=== PATIENT | female | born 1985 | race Caucasian/White ===

== ENCOUNTER 2020-01-09 02:16 | Emergency (ER) | payer MEDICAID ==
--- NOTE | 2020-01-09 02:50 | EDM.PDOC ---
ED HPI GENERAL MEDICAL PROBLEM - General Chief Complaint: FACILITIES MAINTENANCE SUPERVISOR Problem Stated Complaint: BLEEDING Time Seen by Provider: 01/09/20 02:30 Source of Information: Reports: Patient History Limitations: Reports: No Limitations - History of Present Illness INITIAL COMMENTS - FREE TEXT/NARRATIVE: Patient is a @ approximately 31 weeks AOG presented to the ED because of post coital bleeding. Denies any abdominal pain. 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 History: - Infectious Disease History Infectious Disease History: Reports: Chicken Pox - Past Surgical History HEENT Surgical History: Reports: Oral Surgery Social & Family History - Family History Family Medical History: Noncontributory - Tobacco Use Smoking Status *Q: Current Every Day Smoker Years of Tobacco use: 9 Packs/Tins Daily: 0.5 - Caffeine Use Caffeine Use: Reports: Energy Drinks, Soda, Tea - Recreational Drug Use Recreational Drug Use: No ED ROS GENERAL - Review of Systems Review Of Systems: See Below Constitutional: Reports: No Symptoms HEENT: Reports: No Symptoms Respiratory: Reports: No Symptoms Cardiovascular: Reports: No Symptoms Endocrine: Reports: No Symptoms GI/Abdominal: Reports: No Symptoms : Reports: No Symptoms Musculoskeletal: Reports: No Symptoms Skin: Reports: No Symptoms ED EXAM - Physical Exam Exam: See Below Exam Limited By: No Limitations General Appearance: Alert, No Apparent Distress Ears: Normal External Exam, Normal Canal Nose: Normal Inspection, Normal Mucosa Throat/Mouth: Normal Inspection, Normal Lips, Normal Teeth Head: Atraumatic, Normocephalic Neck: Normal Inspection, Supple, Non-Tender Respiratory/Chest: No Respiratory Distress, Lungs Clear, Normal Breath Sounds Cardiovascular: Normal Peripheral Pulses, Regular Rate, Rhythm, No Edema GI/Abdominal Exam: Normal Bowel Sounds, Soft, Non-Tender, Other (FHR-140's) Course - Vital Signs Text/Narrative:: heart rate 140's and and i explained to the patient and her that it's reassuring. Patient's got upset that we can't do ultrasound here and that there is no OB. 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 Last Recorded V/S: Last Vital Signs Temp 36.5 C 01/09/20 02:16 Pulse 110 H 01/09/20 02:16 Resp 20 01/09/20 02:16 BP 148/88 H 01/09/20 02:16 Pulse Ox 100 01/09/20 02:16 Departure - Departure Time of Disposition: 02:45 Disposition: Home, Self-Care 01 Condition: Good Clinical Impression: Postcoital bleeding - Discharge Information Instructions: Vaginal Bleeding During , Third Trimester Referrals: Luis F Davies MD [Primary Care Provider] - Forms: ED Department Discharge Additional Instructions: Please read discharge instructions on vaginal bleeding during the 3rd trimester. No unprotected sexual intercourse. Semen contains prostaglandins which can make your cervix open causing you to have a miscarriage Proceed to your OB in [place] if you have any cramping pain, passing out clots and tissue. We don't do OB anymore at [facility] – [place], [place] Sepsis Event Note (ED) - Evaluation Sepsis Screening Result: No Definite Risk - Focused Exam Vital Signs: Vital Signs Temp Pulse Resp BP Pulse Ox 01/09/20 02:16 36.5 C 110 H 20 148/88 H 100
== END 2020-01-09 03:18 | disposition home or self-care (01) ==
LOC: FB.ED 02:16
DX: O99.89 Other specified diseases and conditions complicating pregnancy, childbirth and the puerperium (principal); N93.0 Postcoital and contact bleeding; O99.333 Smoking (tobacco) complicating pregnancy, third trimester; F17.210 Nicotine dependence, cigarettes, uncomplicated; Z79.899 Other long term (current) drug therapy; Z3A.31 31 weeks gestation of pregnancy
CPT/HCPCS: 99283